=== PATIENT | male | born 1980 | race Caucasian/White ===

== ENCOUNTER 2021-07-22 21:18 | Emergency (ER) | payer OTHER ==
[~2021-07-22] VITALS: Ht 167.6 cm; Wt 83.9 kg
[~2021-07-22 21:18] MED LIST: FLEXERIL PO; NOHOMEMEDICATIONS; NORCO 5-325 TA1 EACH PO
[2021-07-22 22:38] LABS: ABSOLUTE LYMPHOCYTES 0.4 thou/uL (0.8-5.3); ABSOLUTE MONOCYTES 0.2 thou/uL (0.0-1.2); ABSOLUTE NEUTROPHILS 2.8 thou/uL (1.6-8.1); BASOPHILS 0.5 %; EOSINOPHILS 0.1 %; HEMATOCRIT 41.8 % (42.0-52.0); HEMOGLOBIN 14.9 gm/dL (14.0-18.0); LYMPHOCYTES 12.7 %; MCH 31.1 pg (26.0-34.0); MCHC 35.7 g/dL (28.0-37.0); NUCLEATED RBCS 1 /100WBC; PLATELET COUNT* 103 thou/uL (150-400); POLYS 80.7 %; RDW-CV 12.8 % (10.5-14.5); WBC 3.4 thou/uL (4.0-11.0)
[2021-07-22 22:47] LABS: CALCIUM 8.5 mg/dL (8.5-10.1); CREATININE 1.3 mg/dL (0.6-1.3)
[2021-07-22 22:51] LABS: ALBUMIN 3.2 g/dL (3.4-5.0); TOTAL BILIRUBIN 0.4 mg/dL (<0.1-1.0); TOTAL PROTEIN 7.8 g/dL (6.4-8.2)
[2021-07-23] MEDS ORDERED: AUGMENTIN 875-1 EACH PO (00:38)
[2021-07-23] MEDS ORDERED: PROAIR HFA8.5 GM INH (00:38)
[2021-07-23] MEDS ORDERED: ZOFRAN ODT4 MG PO (00:38)
[2021-07-23 00:50] VITALS: BP 130/89
== END 2021-07-23 00:51 | disposition home or self-care (01) ==
LOC: M.ERS 21:18
PROVIDERS: Emergency Medicine
DX: U07.1 COVID-19 (principal); J18.9 Pneumonia, unspecified organism; R11.2 Nausea with vomiting, unspecified; R19.7 Diarrhea, unspecified